=== PATIENT | female | born 1965 | race Caucasian/White ===

== ENCOUNTER → 2017-05-27 | Outpatient (CLI) | payer OTHER ==
[~2017-05-27] MED LIST: ALBUAER2 INH; ASMTWH INH; CETI10TA84 PO; PRLSR20 PO
--- NOTE | 2017-05-27 16:41 | MAMMOGRAPHY REPORT ---
BILATERAL FIRST EVER DIGITAL SCREENING MAMMOGRAM TOMOSYNTHESIS WITH CAD: 05/27/2017 CLINICAL HISTORY: Routine screening. Baseline exam. TECHNIQUE: Breast tomosynthesis in addition to standard 2D mammography was performed. Current study was also evaluated with a Computer Aided Detection (CAD) system. COMPARISON: No prior exams were available for comparison. BREAST COMPOSITION: There are scattered areas of fibroglandular density in both breasts. FINDINGS: There is a 5 x 8 mm oval a partially circumscribed mass in the upper outer posterior right breast. Although this could represent an intramammary lymph node, definitive characterization with targeted ultrasound and possible additional mammographic views is recommended. No other suspicious mass, architectural distortion or cluster of microcalcifications is seen bilradhaa elio. IMPRESSION: ACR BI-RADS CATEGORY 0: INCOMPLETE EVALUATION: NEED ADDITIONAL IMAGING EVALUATION The 5 x 8 mm oval mass in the right upper outer breast needs additional evaluation. The patient will be called to schedule an appointment. Approximately 10% of breast cancers are not detected with mammography. A negative mammographic report should not delay biopsy if a clinically suggestive mass is present. Patti Aguila M.D. ay/:05/27/2017 16:14:37 Contact Center Representative: Kristin WISEMAN(Dulce)(Ru)(BD), [facility] letter sent: Addl Imaging 0 BI-RADS Code: ACR BI-RADS Category 0: Incomplete Evaluation: Need Additional Imaging Evaluation
== END | disposition home or self-care (01) ==
LOC: C.MAMM 10:48
PROVIDERS: ATTEND Obstetrics & Gynecology
DX: Z12.31 Encounter for screening mammogram for malignant neoplasm of breast (principal); N63 Unspecified lump in breast

== ENCOUNTER → 2017-06-03 | Outpatient (CLI) | payer OTHER ==
--- NOTE | 2017-06-03 15:12 | MAMMOGRAPHY REPORT ---
ULTRASOUND OF RIGHT BREAST: 06/03/2017 CLINICAL HISTORY: Call back from screening mammography for an oval, 5 x 8 mm partially circumscribed mass in the right upper outer quadrant. COMPARISON: Comparison is made to exam dated: 05/27/2017 mammogram - [facility]. FINDINGS: Targeted ultrasound was performed in the right upper outer quadrant. In the 9:30 axis, 2 cm from the nipple, there is an oval circumscribed mass with echogenic center and thin peripheral hyp oechoic rim, compatible with a morphologically normal intramammary lymph node. Central blood flow is documented to the echogenic fatty hilum. It measures 6.3 x 2.6 x 5.1 mm and is benign. This correl ates well in size, shape and location as the mammographic mass and is benign. IMPRESSION: ACR BI-RADS CATEGORY 2: BENIGN The oval circumscribed mass in the right upper outer quadrant correlates with a benign intramammary l ymph node on ultrasound, that has a normal morphology. There is no targeted sonographic evidence of malignancy in the right breast. Recommend follow-up at time of next annual screening exam. These results and recommendations were discussed with the patient at the time of the exam. Patti Aguila M.D. ay/:06/03/2017 10:09:26 Human Resources Training Manager: Dr. Patti Aguila, [facility] letter sent: Normal 1/2 BI-RADS Code: ACR BI-RADS Category 2: Benign
== END | disposition home or self-care (01) ==
LOC: C.MAMM 08:52
PROVIDERS: ATTEND Obstetrics & Gynecology
DX: N63 Unspecified lump in breast (principal)

== ENCOUNTER → 2017-09-04 | Outpatient (CLI) | payer OTHER ==
--- NOTE | 2017-09-04 14:40 | DIAGNOSTIC IMAGING REPORT ---
C-SPINE ROUTINE 4 OR 5 VIEWS HISTORY: 52 years-old Female M54.12 Cervical radiculopathy, [id number] acute cervical spine pain COMPARISON: Cervical spine radiographs 12/19/2008 TECHNIQUE: 5 views of the cervical spine FINDINGS: Anterior fusion and discectomy changes noted at the C5-C6 level. Moderate intervertebral disc space narrowing with endplate spurring seen at C6-C7. Mild posterior intervertebral disc space narrowing with uncovertebral spurring noted at the C4-C5 level. Mild multilevel facet arthrosis. Moderate facet arthropathy at C6-C7. There is mild bony neuroforaminal stenosis on the right at the C6-C7 level and on the left at C6-C7 with moderate foraminal stenosis on the left at C4-C5. No acute fracture or subluxation. Lung apices appear clear. No prevertebral soft tissue swelling. IMPRESSION: 1. No acute fracture or subluxation. 2. Anterior fusion with discectomy changes at C5-C6. 3. Degenerative changes as above. The above report was generated using voice recognition software. It may contain grammatical, syntax or spelling errors. Electronically signed by: Portillo Garcia M.D. 09/04/2017 2:39 PM Dictated Date/Time: 09/04/2017 2:35 PM
== END | disposition home or self-care (01) ==
LOC: C.RADBC 14:16
PROVIDERS: ATTEND Nurse Practitioner Adult Health
DX: M54.12 Radiculopathy, cervical region (principal)